=== PATIENT | female | born 1955 | race Caucasian/White ===

== ENCOUNTER 2018-10-19 18:56 | Emergency (ER) | payer BC ==
[2018-10-19 19:13] VITALS: BP 174/108; PULSE 58; RESP 20; TEMP 98.2; O2SAT 99
[2018-10-19] MEDS ORDERED: Lidocaine 5% Patch TD ONE ×2 (19:33→19:36)
--- NOTE | 2018-10-19 19:49 | C.PDOC ---
History Of Present Illness 63 y/o female pt with hx of osteoporosis and sciatica and PSHx of hysterectomy presents to the ER c/o worsening lower back pain. Pt reports she drove for 5 hours now her back is progressively getting worse. Lower back pain radiates to the left lower leg. Pt is unable to sit down due to pain. Pt notes [id number] pain medications does not provide relief. Pt has denies any urinary or bowel issues and has no other complaints or associated sx at this time. Time Seen by Provider: 10/19/18 19:18 Chief Complaint (Nursing): Back Pain History Per: Patient History/Exam Limitations: no limitations Onset/Duration Of Symptoms: Days Current Symptoms Are (Timing): Still Present Quality Of Discomfort: "Pain" Past Medical History Reviewed: Historical Data, Nursing Documentation, Vital Signs Vital Signs: Last Vital Signs Temp 98.2 F 10/19/18 19:02 Pulse 58 L 10/19/18 19:02 Resp 20 10/19/18 19:02 BP 174/108 H 10/19/18 19:02 Pulse Ox 99 10/19/18 19:02 - Medical History PMH: HTN, Osteoporosis Family History: States: Unknown Family Hx - Social History Hx Tobacco Use: No Hx Alcohol Use: Yes Hx Substance Use: No - Immunization History Hx Tetanus Toxoid Vaccination: (unk) Hx Influenza Vaccination: Yes Review Of Systems Except As Marked, All Systems Reviewed And Found Negative. Gastrointestinal: Negative for: Constipation, Melena, Hematochezia Genitourinary: Negative for: Dysuria, Frequency, Incontinence, Hematuria Musculoskeletal: Positive for: Back Pain, Leg Pain Physical Exam - Physical Exam Appears: Non-toxic, No Acute Distress Skin: Warm, Dry Head: Normacephalic Eye(s): bilateral: Normal Inspection Oral Mucosa: Moist Throat: Normal, No Erythema Chest: Symmetrical Cardiovascular: Rhythm Regular Respiratory: Normal Breath Sounds Gastrointestinal/Abdominal: Soft, No Tenderness Back: Other (tenderness to the lumbar spine ) Extremity: Normal ROM (x4) Neurological/Psych: Oriented x3, Normal Speech ED Course And Treatment O2 Sat by Pulse Oximetry: 99 (RA) Pulse Ox Interpretation: Normal Medical Decision Making Medical Decision Making: plans: -- valium -- toradol -- lidocaine Disposition - Disposition Referrals: at [facility] [place] [Outside] at [facility] [Outside] at [employer] [Outside] Disposition: HOME/ ROUTINE Disposition Time: 20:23 Condition: GOOD Prescriptions: Cyclobenzaprine [Cyclobenzaprine HCl] 10 mg PO TID #15 tab Ibuprofen [Motrin] 600 mg PO Q6 #20 tab Lidocaine 5% [Lidoderm] 1 ea TD Q12 #4 patch Instructions: Low Back Pain in Adults, Sciatica (DC) Forms: Screen Fix Gibson (Macanese) - Clinical Impression Clinical Impression: Low back pain, Sciatica - Scribe Statement The provider has reviewed the documentation as recorded by the Claudy Almaguer Do Provider Attestation: All medical record entries made by the Claudy were at my direction and personally dictated by me. I have reviewed the chart and agree that the record accurately reflects my personal performance of the history, physical exam, medical decision making, and the department course for this patient. I have also personally directed, reviewed, and agree with the discharge instructions and disposition.
== END 2018-10-19 20:24 | disposition home or self-care (01) ==
LOC: C.ER 18:56
DX: M54.42 Lumbago with sciatica, left side (principal)
CPT/HCPCS: 96372; 99283; J1885